=== PATIENT | female | born 1965 | race Caucasian/White ===

== ENCOUNTER 2018-09-07 19:49 | Emergency (ER) | payer OTHER ==
[2018-09-07] MEDS ORDERED: NORMAL SALINE 1000 ML 1,000 ML IV ONE (22:18)
[2018-09-07] MEDS ORDERED: DICYCLOMINE HCL 20 MG TABLET PO ONE (22:19)
[2018-09-07] MEDS ORDERED: ONDANSETRON HCL INJ/PF 4 MG/2 ML SDV IV ONE (22:19)
--- NOTE | 2018-09-07 22:21 | ER Document Report ---
ED Medical Screen (RME) - General Chief Complaint: Nausea/Vomiting/Diarrhea Stated Complaint: VOMITING AND CHILLS Time Seen by Provider: 09/07/18 22:17 Notes: Patient is a 53-year-old female presents emergency department with flulike symptoms. She states that she has vomited 8 times today, had 2 days of diarrhea with about 12 bouts of diarrhea each day, body aches, and a fever. She states that she was recently exposed to a family members who have the flu. Her temperature was 101.6 here in the emergency department. She has attempted to take Imodium to help with her symptoms, but has not had any relief. Admits to some abdominal cramping. Exam: tender abdomen throughout I have greeted and performed a rapid initial assessment of this patient. A comprehensive ED assessment and evaluation of the patient, analysis of test results and completion of medical decision making process will be conducted by an additional ED providers. TRAVEL OUTSIDE OF THE [place] IN LAST 30 DAYS: No - Related Data Allergies/Adverse Reactions: duloxetine [From Cymbalta] Allergy (Verified 09/07/18 22:11) hydromorphone [From Dilaudid] Allergy (Verified 09/07/18 22:11) meloxicam [From Mobic] Allergy (Verified 09/07/18 22:11) sertraline [From Zoloft] Allergy (Verified 09/07/18 22:11) valdecoxib [From Bextra] Allergy (Verified 09/07/18 22:11) Past Medical History - Social History Frequency of alcohol use: Occasional Drug Abuse: Marijuana Renal/ Medical History: Denies: Hx Peritoneal Dialysis Physical Exam - Vital signs Vitals: Temp Pulse Resp BP Pulse Ox 101.6 F H 112 H 16 109/69 93 09/07/18 20:02 09/07/18 20:02 09/07/18 20:02 09/07/18 20:02 09/07/18 20:02 Course - Vital Signs Vital signs: Temp Pulse Resp BP Pulse Ox 101.6 F H 112 H 16 109/69 93 09/07/18 20:02 09/07/18 20:02 09/07/18 20:02 09/07/18 20:02 09/07/18 20:02
[2018-09-07 23:41] LABS: ABSOLUTE LYMPHOCYTES (AUTO) 0.4 10^3/uL (0.5-4.7); ABSOLUTE MONOCYTES (AUTO) 0.2 10^3/uL (0.1-1.4); ABSOLUTE NEUT (AUTO) 6.1 10^3/uL (1.7-8.2); BASOPHILS % (AUTO) 0.2 % (0-2); EOSINOPHILS % (AUTO) 0.7 % (0-6); HEMATOCRIT 47.1 % (36.0-47.0); HEMOGLOBIN 16.3 g/dL (12.0-15.5); LYMPHOCYTES % (AUTO) 6.5 % (13-45); MEAN CORPUSCULAR HEMOGLOBIN 31.7 pg (27.0-33.4); MEAN CORPUSCULAR HGB CONC 34.6 g/dL (32.0-36.0); MEAN CORPUSCULAR VOLUME 91 fl (80-97); MONOCYTES % (AUTO) 3.1 % (3-13); RED BLOOD COUNT 5.15 10^6/uL (3.72-5.28); RED CELL DISTRIBUTION WIDTH 13.9 % (11.5-14.0); SEGMENTED NEUTROPHILS % (AUTO) 89.5 % (42-78); TOTAL CELLS COUNTED % (AUTO) 100 %; WHITE BLOOD COUNT 6.8 10^3/uL (4.0-10.5)
[2018-09-07 23:49] LABS: ALANINE AMINOTRANSFERASE 26 U/L (9-52); ALBUMIN 4.4 g/dL (3.5-5.0); ALKALINE PHOSPHATASE 78 U/L (38-126); ANION GAP 12 (5-19); ASPARTATE AMINO TRANSFERASE 36 U/L (14-36); BILIRUBIN,DIRECT 0.3 mg/dL (0.0-0.4); BILIRUBIN,TOTAL 0.7 mg/dL (0.2-1.3); BLOOD UREA NITROGEN 12 mg/dL (7-20); CALCIUM 9.1 mg/dL (8.4-10.2); CARBON DIOXIDE 26 mmol/L (22-30); CHLORIDE 100 mmol/L (98-107); GLUCOSE 103 mg/dL (75-110); POTASSIUM 4.3 mmol/L (3.6-5.0); SODIUM 137.7 mmol/L (137-145); TOTAL PROTEIN 7.6 g/dL (6.3-8.2)
[2018-09-07 23:55] LABS: A TYPE INFLUENZA AG NEGATIVE (NEGATIVE); B INFLUENZA AG NEGATIVE (NEGATIVE)
[2018-09-08 00:06] LABS: PLATELET COUNT 90 10^3/uL (150-450)
[2018-09-08 01:00] VITALS: BP 100/56
[2018-09-08] MEDS ORDERED: NORMAL SALINE 500 ML IV ONE (01:33)
--- NOTE | 2018-09-08 01:35 | ER Document Report ---
ED General - General Chief Complaint: Nausea/Vomiting/Diarrhea Stated Complaint: VOMITING AND CHILLS Time Seen by Provider: 09/07/18 22:17 Notes: Patient is a pleasant 53-year-old female who presents with complaint of nausea vomiting and diarrhea. She also start having fevers today. Diarrhea is been ongoing for 2 days. Is watery in nature. Her niece had the same symptoms last week and was tested flu positive. Patient says she has occasional mild upper abdominal pain left upper quadrant associate with vomiting but that has since resolved. She is feeling much improved after receiving medicine for fever and also receiving nausea medicine IV fluids. She denies any blood in her stool. No blood in her emesis. No other complaints at this time. No antibiotic use in the last month. TRAVEL OUTSIDE OF THE [place] IN LAST 30 DAYS: No - Related Data Allergies/Adverse Reactions: duloxetine [From Cymbalta] Allergy (Verified 09/07/18 22:11) hydromorphone [From Dilaudid] Allergy (Verified 09/07/18 22:11) meloxicam [From Mobic] Allergy (Verified 09/07/18 22:11) sertraline [From Zoloft] Allergy (Verified 09/07/18 22:11) valdecoxib [From Bextra] Allergy (Verified 09/07/18 22:11) Past Medical History - Social History Smoking Status: Current Every Day Smoker Frequency of alcohol use: Occasional Drug Abuse: Marijuana Family History: Reviewed & Not Pertinent Patient has suicidal ideation: No Patient has homicidal ideation: No Renal/ Medical History: Denies: Hx Peritoneal Dialysis Review of Systems - Review of Systems Notes: My Normal Review Basic REVIEW OF SYSTEMS: CONSTITUTIONAL : Fevers EENT: Denies eye, ear, throat, or mouth pain or symptoms. Denies nasal or s inus congestion. CARDIOVASCULAR: Denies chest pain. RESPIRATORY: Denies cough, cold, or chest congestion. Denies shortness of breath, difficulty breathing, or wheezing. GASTROINTESTINAL: Mild left upper quadrant pain. Vomiting or diarrhea. GENITOURINARY: Denies difficulty urinating, painful urination, burning, frequency, or blood in urine. MUSCULOSKELETAL: Denies neck or back pain or joint pain or swelling. SKIN: Denies rash or skin lesions. NEUROLOGICAL: Denies altered mental status or loss of consciousness. Denies headache. Denies weakness or paralysis or loss of use of either side. Denies problems with gait or speech. Denies sensory or motor loss. ALL OTHER SYSTEMS REVIEWED AND NEGATIVE. Physical Exam - Vital signs Vitals: Temp Pulse Resp BP Pulse Ox 101.6 F H 112 H 16 109/69 93 09/07/18 20:02 09/07/18 20:02 09/07/18 20:02 09/07/18 20:02 09/07/18 20:02 - Notes Notes: General Appearance: Well nourished, alert, cooperative, no acute distress, no obvious discomfort. Well-appearing Vitals: reviewed, See vital signs table. Head: no swelling or tenderness to the head Eyes: PERRL, EOMI, Conjuctiva clear Mouth: No decreasd moisture Lungs: No wheezing, No rales, No rhonci, No accessory muscle use, good air exchange bilaterally. Heart: Normal rate, Regular rythm, No murmur, no rub Abdomen: Normal BS, soft, No rigidity, No reproducible abdominal tenderness to palpation., No guarding, no rebound, no abdominal masses, no organomegaly Extremities: good pulses in all extremities, no swelling or tenderness in the extremities, no edema. Skin: warm, dry, appropriate color, no rash Neuro: speech clear, oriented x 3, normal affect, responds appropriately to questions. Course - Re-evaluation Re-evalutation: 09/08/18 02:09 Patient is feeling much improved after receiving the Zofran and IV fluids. Her niece was recent diagnosed with the flu and had similar symptoms. Patient's flu testing is negative however flu testing is not 100% and is still possible she could have the flu causing her symptoms. Items have been ongoing for just over 48 hours now therefore she is not a candidate for Tamiflu. Informed patient at this time will do symptomatic care. We have placed her on Zofran. I encouraged her to continue to drink liquids. I encouraged her to have a low threshold to return to ER if she has dull pain, fevers responding to Tylenol, intractable vomiting, bloody stools, or if she feels unwell in any way. Patient agrees with plan will be discharged home. Dictation of this chart was performed using voice recognition software; therefore, there may be some unintended grammatical errors. 09/08/18 02:10 - Vital Signs Vital signs: Temp Pulse Resp BP Pulse Ox 99.8 F 100 16 100/56 L 96 09/08/18 00:59 09/08/18 00:59 09/08/18 00:59 09/08/18 00:59 09/08/18 00:59 - Laboratory Result Diagrams: 09/07/18 23:01 09/07/18 23:01 Laboratory results interpreted by me: 09/07/18 23:01 Hgb 16.3 H Hct 47.1 H Plt Count 90 L Seg Neutrophils % 89.5 H Lymphocytes % 6.5 L Absolute Lymphocytes 0.4 L Discharge - Discharge Clinical Impression: Vomiting and diarrhea Fever Qualifiers: Fever type: unspecified Qualified Code(s): R50.9 - Fever, unspecified Condition: Good Disposition: HOME, SELF-CARE Additional Instructions: I suspect that your vomiting and diarrhea and fever is related to a viral illness. You should still have a low threshold to return to the ER if you have intractable vomiting, severe abdominal pain, recurrent fevers, or any blood in your stool. Please take the Zofran as 1 tablet every 4 hours as needed for nausea. Please drink lots of non-caffeinated liquids to stay well-hydrated. Please follow-up with your doctor on Wednesday for reevaluation. Prescriptions: Ondansetron [Zofran Odt 4 mg Tablet] 1 tab PO Q4H PRN #15 tab.rapdis PRN Reason: For Nausea/Vomiting Forms: Return to Work Referrals: VERONICA ALVARADO MD [Primary Care Provider] - 09/09/18
[2018-09-08] MEDS ORDERED: ONDANSETRON ODT 4 MG TAB (6 TAB/ER DISP) PO PRN (02:05)
== END 2018-09-08 03:00 | disposition home or self-care (01) ==
LOC: ER 19:49
DX: R11.2 Nausea with vomiting, unspecified (principal); R19.7 Diarrhea, unspecified; R50.9 Fever, unspecified; R10.10 Upper abdominal pain, unspecified; R10.12 Left upper quadrant pain; F17.200 Nicotine dependence, unspecified, uncomplicated
CPT/HCPCS: 99284; 96361; 96374; 36415; 85025; 80053; 87804; J3490; J2405; J7030; J7040